=== PATIENT | male | born 1995 | race Caucasian/White ===

== ENCOUNTER → 2020-12-16 12:47 | Outpatient (CLI) | payer OTHER, SELFPAY ==
--- NOTE | 2020-12-16 12:53 | DI.MRI.S_ITS ---
PROCEDURE: MR LUMBAR SPINE WO CON INDICATIONS: LOWER BACK PAIN TECHNIQUE: Noncontrast sagittal T1 spin echo and T2 fast echo, sagittal STIR, axial T1 and T2 fast spin echo through the lumbar spine. In cases with scoliosis, additional coronal T2 fast spin echo may be performed. COMPARISON: [facility] Outside Film, MR, MR LUMBAR SPINE WITHOUT CONTRAST, 07/07/2019, 8:28. [facility] Outside Film, MR, MR LUMBAR SPINE WITHOUT CONTRAST, 07/07/2019, 8:28. [facility] Outside Film, CT, CT LUMBAR SPINE WITHOUT CONTRAST, 06/10/2019, 18:22. [facility] Outside Film, CT, CT LUMBAR SPINE WITHOUT CONTRAST, 06/10/2019, 18:22. [facility] Outside Film, CR, XR LUMBAR SPINE 2 OR 3 VIEWS, 12/01/2020, 13:25. FINDINGS: Image quality: Excellent. Alignment and Curvature: There is minimal retrolisthesis seen at the L5-S1 level. Bone Marrow: Marrow is of normal overall signal. No acute vertebral body compression fractures. Spinal Cord: Conus medullaris terminates at the L1 level. Visualized cord demonstrates normal signal and size. Paraspinous Soft Tissues: No paravertebral masses. T12-L1: Normal appearance. L1-L2: Normal appearance. L2-L3: Normal appearance. L3-L4: Normal appearance. L4-L5: Normal appearance. L5-S1: Mild loss of disc height is seen. The disc signal is relatively well preserved. Mild to moderate disc bulge is seen, with a central disc extrusion, with slight inferior migration of the disc material. There is moderate bilateral neural foraminal narrowing seen. Mild to moderate central canal narrowing is seen. IMPRESSION: Focal L5-S1 degenerative change is seen, which has progressed compared to the prior. Dictated by: Samuel Dang M.D. on 12/16/2020 at 12:32 Approved by: Samuel Dang M.D. on 12/16/2020 at 12:35
== END ==
PROVIDERS: PCP Orthopaedic Surgery; Referring Provider Orthopaedic Surgery; Visit Provider Orthopaedic Surgery
DX: M54.5 Low back pain (principal); M47.817 Spondylosis without myelopathy or radiculopathy, lumbosacral region
CPT/HCPCS: 72148